=== PATIENT | male | born 1965 | race Caucasian/White ===

== ENCOUNTER 2023-05-06 11:14 | Day surgery (SDC) | payer OTHER ==
[2023-05-02 10:09] VITALS: BMI 29.2
[~2023-05-06 11:14] MED LIST: LACTATED RINGERS 1,000 ML IV SCH
[2023-05-06 12:04] VITALS: RESP 14; TEMP 98.3
[2023-05-06] MEDS ORDERED: PROPOFOL 10 MG/ML 20 ML VIAL IV ONE (12:41)
--- NOTE | 2023-05-06 12:52 | P.PCN ---
Date of Procedure: 05/06/23 Procedure(s) Performed: BRIEF HISTORY: Patient is a 58-year-old pleasant white male scheduled for an elective colonoscopy as a part of screening for colon cancer. PROCEDURE PERFORMED: Colonoscopy with snare polypectomy. PREOPERATIVE DIAGNOSIS: Screening for colon cancer. IV sedation per Anesthesia. PROCEDURE: After informed consent was obtained, the patient, was brought into the endoscopy unit. IV sedation was administered by Anesthesia under continuous monitoring. Digital rectal examination was normal. Initially the Olympus CF-160 flexible video colonoscope was then inserted in the rectum, gradually advanced into the cecum without any difficulty. Careful examination was performed as the scope was gradually being withdrawn. Ileocecal valve and the appendiceal orifice were visualized and appeared normal. Prep was excellent. Mucosa of the cecum, ascending colon, transverse colon appeared normal. In the descending colon there was a 6 mm polyp that was removed by snare polypectomy. In the sigmoid colon there was a 4 mm sessile polyp removed by cold snare polypectomy. Rest of the, descending colon, sigmoid colon, and rectum appeared normal. Retroflexion was performed in the rectum and no lesions were seen. The patient tolerated the procedure well. IMPRESSION: 6 mm ascending colon polyp status post polypectomy 4 mm; sigmoid polyp status post polypectomy. RECOMMENDATIONS: Findings of this examination were discussed with the patient as well as his family. Was advised to follow with the biopsy results and if the biopsy was adenoma can have a repeat colonoscopy in 5 years.
[2023-05-06 14:08] VITALS: BP 152/90; PULSE 88
== END 2023-05-06 13:40 | disposition home or self-care (01) ==
LOC: ORWHC2ENDO 11:14
PROVIDERS: ATTEND Internal Medicine Gastroenterology
DX: Z12.11 Encounter for screening for malignant neoplasm of colon (principal); D12.5 Benign neoplasm of sigmoid colon; D12.4 Benign neoplasm of descending colon; K63.5 Polyp of colon; I10 Essential (primary) hypertension; Z98.890 Other specified postprocedural states; Z79.899 Other long term (current) drug therapy
CPT/HCPCS: 88305; 45385; J2704